=== PATIENT | male | born 1960 | race Caucasian/White ===

== ENCOUNTER 2019-12-10 11:57 | Emergency (ER) | payer OTHER, SELFPAY ==
[2019-12-10 12:02] VITALS: BP 143/88; PULSE 71; RESP 16; TEMP 36.6; O2SAT 96
--- NOTE | 2019-12-10 13:41 | ED.GENADUL_ITS ---
Discharge Plan Disposition Patient Disposition: HOME Condition: Improving Discharge Details Chief Complaint: Nk/Back Pain Clinical Impression: Sciatica, Low back pain Primary Care Provider: Marline,Local ED Provider: Tamia Gomez Home Meds and New Rx's Prescriptions: New diazepam [Valium] 5 mg tablet 5 mg PO TID PRN (Reason: muscle spasm) Qty: 10 RF: 0 prednisone 50 mg tablet 50 mg PO DAILY Qty: 4 RF: 0 Discharge Instructions Instructions: Sciatica (ED), Low Back Strain (ED) Additional Instructions: Encourage water intake. Encourage gentle stretching and frequent walking. Please avoid activities that cause increased discomfort. If you are driving home, stop frequently to stretch. Please take Tylenol and/or ibuprofen as need ed for discomfort. If this is unsuccessful relieving her discomfort, you may augment this with the Valium as prescribed. This can be sedating, please do not drive after taking this medication. Please take only as prescribed. Please take the steroid as prescribed daily. If you develop fever/chills, increased pain, change in your bowel or bladder habits or other new/worsening symptoms please seek care urgently once again. Discharge Data Discharge Date/Time-TO BE ENTERED AT DEPARTURE: 12/10/19 14:53 Medical Decision Making Patient is a pleasant 59-year-old male, company by his , presenting today with chief complaint of right-sided back pain. He reports he is had multiple similar episodes with this time the discomfort is simply not going away. He reports that 2 weeks ago he stressed his back at work. Patient works construction. States that he has been driving a large amount over the past 2 weeks at this seems to exacerbate his discomfort. He indicates the right buttock is area of maximal discomfort and states the pain radiates down the right leg. Denies any change in his bowel or bladder habit. Denies any trauma. No midline tenderness. Patient's been taking ibuprofen for his discomfort without any resolution of his symptoms. He reports that he felt like his right leg was numb at one point but this subsided. Continues to have this sharp discomfort associated with prolonged sitting. Exam is reassuring. Normal vascular exam, reflexes intact, 5 out of 5 strength, no saddle paresthesias. Pain is maximal over the right SI joint and right buttock. History and exam is most consistent with sciatica. Patient be treated with steroids, Valium and Tylenol. Discussed this plan with the patient who is in agreement. Patient is feeling improved after medication. He is requesting discharge. We discussed safe medication administration. He was given strict return precautions. Advised to follow-up with primary care this week for reevaluation. Encourage gentle range of motion, stretching and frequent ambulation. Was given strict return precautions. Encourage close follow-up. Patient prescribed Valium and prednisone. Will not drive while using the Valium. Nonspecific concerns were addressed and he is in agreement this plan. HPI General Mode of arrival: ambulatory . Date/Time Provider Initiated Documentation: 12/10/19 13:41 . Limitations to Documentation: no limitations . Information obtained by: patient, family (Accompanied by ) and RN notes reviewed . History of Present Illness 59 year old M presents to the emergency department with the chief complaint of Right lower back pain, described as moderate and similar to prior episodes, with intensity rated at 6. Quality is described as stabbing, and is localized to the back. Patient extremity. Patient started experiencing this week(s) (2) and it has been constant. Immobilization improves symptom(s), Movement worsens symptoms . Patient notes no other symptoms.. Patient did receive the following treatments prior to arrival, NSAID Related Data Home Medications Medication Instructions Recorded Confirmed diazepam [Valium] 5 mg PO TID PRN #10 tab 12/10/19 prednisone 50 mg PO DAILY #4 tab 12/10/19 Previous Rx's Medication Instructions Recorded diazepam [Valium] 5 mg PO TID PRN #10 tab 12/10/19 prednisone 50 mg PO DAILY #4 tab 12/10/19 General Stated Complaint: Nk/Back Pain AISHWARYA: 4 Review of Systems Constitutional Constitutional: Reports as per HPI, Denies chills, Denies fatigue, Denies fever(s), Denies frequent falls and Denies headache(s) Eyes Eyes: Denies change in vision ENT Ears, Nose, Mouth, and Throat: Denies headache(s) Cardiovascular Cardiovascular: Denies chest pain, Denies dyspnea and Denies dyspnea on exertion Respiratory Respiratory: Denies cough, Denies dyspnea and Denies dyspnea on exertion Gastrointestinal Gastrointestinal: Denies abdominal pain, Denies change in bowel habits and Denies fecal incontinence Genitourinary Genitourinary: Reports as per HPI, Denies urinary hesitancy and Denies urinary incontinence Musculoskeletal Musculoskeletal: Reports as per HPI, Reports back pain, Denies muscle weakness, Denies numbness, Denies radiating pain into limb, Reports stiffness and Denies tingling Integumentary/Breasts Skin/Breast: Reports as per HPI and Denies rash Neurologic Neurologic: Reports as per HPI, Denies frequent falls, Denies headache(s), Denies focal weakness, Denies numbness, Denies radicular pain, Denies sensory deficit, Denies tingling and Denies paresthesias Endocrine Endocrine: Denies fatigue [facility] Social History Smoking/Tobacco Use Status: Never Drug use: Never Do you feel safe at home: Yes Do you feel safe in your relationship?: Yes Exam Const General: cooperative, healthy appearing, comfortable, no acute distress, well developed and well groomed Nutritional Appearance: average body habitus and well nourished Orientation: alert and awake Eyes General: appearance normal, both eyes and all related structures Neck Neck: normal visual inspection, full ROM, no lymphadenopathy and no meningeal signs Resp Effort & Inspection: normal respiratory effort and able to speak in complete sentences Auscultation: clear to auscultation bilaterally, no rales, no rhonchi and no wheezes Cardio Rate: regular rate Rhythm: regular rhythm Heart Sounds: S1 normal and S2 normal Back/Spine/Pelvis Back: no CVA tenderness Cervical Spine: normal cervical lordosis and cervical ROM normal Thoracic/Lumbar Spine: thoracic and lumbar spine normal to inspection, thoraco- lumbar ROM normal, straight leg raise negative bilaterally, No bend over test abnormal, No paraspinal tenderness, No thoraco-lumbar ROM limited, No thoraco- lumbar spasm and No thoracic spinal tenderness Sacroiliac joints: on the left tender to palpation Skin General skin exam: no rashes or lesions noted Neuro General: alert and awake Cognition: normal cognition Speech: speech normal Gait: normal gait Motor: muscle tone normal throughout, strength 5/5 throughout, no movement abnormalities noted and no fasciculations Sensory Exam: no sensory deficits noted (no saddle paresthesias) DTR's: Rt Patellar: 2+, Lt Patellar: 2+, Rt Ankle: 2+ and Lt Ankle: 2+ Extrem General: normal to inspection, full ROM, normal capillary refill, no joint enlargement, no pedal edema, no calf tenderness and normal gait Psych Appearance: grossly normal and well kempt Mental Status: mental status grossly normal Speech and Movement: speech and movement normal Course Vital Signs Vital signs: Vital Signs Temperature 36.6 C 12/10/19 12:02 Pulse 71 12/10/19 12:02 Respiratory Rate 16 12/10/19 12:02 Blood Pressure 143/88 H 12/10/19 12:02 Pulse Oximetry 96 12/10/19 12:02 Temperature 36.6 C 12/10/19 12:02 Temperature Source Skin 12/10/19 12:02 Pulse 71 12/10/19 12:02 Respiratory Rate 16 12/10/19 12:02 Respiratory Effort 12/10/19 12:02 Blood Pressure 143/88 H 12/10/19 12:02 Pulse Oximetry 96 12/10/19 12:02 Oxygen Delivery Method Room Air 12/10/19 12:02 Oxygen Flow Rate 0 12/10/19 12:02 Pain Level 6 12/10/19 12:02
[2019-12-10] MEDS: Lidocaine 5% Patch 1 PATCH TP (14:08)
[2019-12-10] MEDS: predniSONE 20 MG TAB 60 MG PO (14:09)
[2019-12-10] MEDS: Acetaminophen 500 MG TAB 1000 MG PO (14:10)
[2019-12-10] MEDS: diazePAM 5 MG TAB PO (14:11)
[2019-12-10 14:54] VITALS: BP 146/78; PULSE 74; RESP 16; O2SAT 100
== END 2019-12-10 14:53 | disposition home or self-care (01) ==
PROVIDERS: Emergency Provider Physician Assistant
DX: M54.41 Lumbago with sciatica, right side (principal)
CPT/HCPCS: 99283; J7512